=== PATIENT | female | born 1990 | race Caucasian/White ===

== ENCOUNTER 2018-01-23 19:38 | Emergency (ER) | payer OTHER ==
[2018-01-23 20:29] VITALS: BP 116/83
--- NOTE | 2018-01-23 21:44 | UC ---
Abigail West Rebecca, scribed for Ryan Novak MD on 01/23/18 at 2040 . Throat Pain/Nasal Julio Cesar HPI - HPI Summary HPI Summary: Pt is a 27 y/o F who presents to [facility] c/o sore throat. Sx have been present for about 2 months, worsening significantly about 2 weeks ago. Pain is on the left side of the throat, currently moderate, ranked 4/10. Has been treating with Tylenol, Advil and gargling salt water. Sx aggravated by swallowing, alleviated by Advil, unchanged by Tylenol. Denies fever, chills, ear pain, rhinorrhea, sinus pressure, lymph node swelling. Has been on a soft food diet secondary to the pain. [place] tooth removal on 01/07 after which her pain worsened. All 4 teeth were removed and she finished Amoxicillin from the surgery on 01/14. Reports having a throat culture done about 1 weeka go prior to moving to [place] which she presumes was negative. - History of Current Complaint Chief Complaint: UCGeneralIllness Stated Complaint: SORE THROAT Time Seen by Provider: 01/23/18 20:32 Hx Obtained From: Patient Hx Last Menstrual Period: [id number] Onset/Duration: Lasting Weeks - 2 months, Still Present, Worse Since - 2 weeks Severity: Moderate Pain Intensity: 4 Pain Scale Used: 0-10 Numeric Cough: None Associated Signs & Symptoms: Positive: Negative. Negative: Fever - Allergies/Home Medications Allergies/Adverse Reactions: Allergies Allergy/AdvReac Type Severity Reaction Status Date / Time pertussis vaccine,fluid Allergy Hives Verified 01/23/18 20:30 PMH/Surg Hx/FS Hx/Imm Hx - Additional Past Medical History Additional PMH: NEGATIVE PMHx: CA, HTN, DM Respiratory History: Asthma - Exercise-induced - Surgical History Surgical History: Yes Surgery Procedure, Year, and Place: appy 09, wisdom teeth 18 - Family History Known Family History: Positive: Hypertension - Paternal side - Social History Alcohol Use: Weekly Substance Use Type: None Smoking Status (MU): Never Smoked Tobacco Review of Systems Constitutional: Negative Skin: Negative Eyes: Negative ENT: Sore Throat Respiratory: Negative Cardiovascular: Negative Gastrointestinal: Negative Genitourinary: Negative Motor: Negative Neurovascular: Negative Musculoskeletal: Negative Neurological: Negative Psychological: Negative All Other Systems Reviewed And Are Negative: Yes - Comments Additional Review of Systems Comments: NEGATIVE: Fever, chills, ear pain, rhinorrhea, sinus pressure, lymph node swelling Physical Exam - Summary Physical Exam Summary: General: well-appearing, no pain distress Skin: warm, color reflects adequate perfusion, dry Head: normal Eyes: EOMI, ROSA ENT: the posterior pharynx appears benign with no masses Neck: supple, mild tenderness to the left upper neck with no palpated masses Respiratory: CTA, breath sounds present Cardiovascular: RRR Abdomen: soft, nontender Bowel: present Musculoskeletal: normal, strength/ROM intact Neurological: sensory/motor intact, A&O x3 Psychological: affect/mood appropriate Triage Information Reviewed: Yes Vital Signs: Initial Vital Signs Temp 98.7 F 01/23/18 20:23 Pulse 74 01/23/18 20:23 Resp 16 01/23/18 20:23 BP 116/83 01/23/18 20:23 Pulse Ox 100 01/23/18 20:23 Vital Signs Reviewed: Yes Re-Evaluation - Re-Evaluation First Eval Re-Evaluation Time: 21:36 Comment: Discussed results. Throat Pain/Nasal Course/Dx - Course Course Of Treatment: DISCUSSED IMAGING (CT SOFT TISSUE NECK) BUT, CT NOT AVAILABLE HERE IN CLINIC NOW. SUSAN HAS AN ENT APPOINTMENT SCHEDULED FOR . GET RECHECKED SOONER IF WORSE. - Differential Dx/Diagnosis Provider Diagnoses: SORE THROAT Discharge - Sign-Out/Discharge Documenting (check all that apply): Discharge/Admit/Transfer - Discharge - Discharge Plan Condition: Stable Disposition: HOME Prescriptions: Amoxicillin/Clavulanate TAB* [Augmentin TAB 875*] 875 mg PO BID #19 tab Patient Education Materials: Pharyngitis (ED) Referrals: [facility] - Kirill BURKS [Medical Doctor] - [facility] [Provider Group] Additional Instructions: FOLLOW UP WITH YOUR PRIMARY CARE DOCTOR AND ENT SCHEDULED. GET RECHECKED FOR ANY WORSENING OF YOUR CONDITION OR QUESTIONS OR CONCERNS. - Billing Disposition and Condition Condition: STABLE Disposition: HOME The documentation as recorded by the Abigail powell Rebecca accurately reflects the service I personally performed and the decisions made by me, Ryan Novak MD.
[2018-01-23] MEDS ORDERED: Amoxicillin/Clavulanate TAB* 875 MG PO ONE ×2 (21:45→21:52)
== END 2018-01-23 21:55 | disposition home or self-care (01) ==
LOC: UCEAST 19:38
DX: J02.9 Acute pharyngitis, unspecified (principal); Z88.7 Allergy status to serum and vaccine; J45.990 Exercise induced bronchospasm
CPT/HCPCS: 87651; 99202; A9270-GY; G0463

== ENCOUNTER 2018-02-17 07:43 | Emergency (ER) | payer OTHER ==
[2018-02-17 07:57] VITALS: BP 124/84
--- NOTE | 2018-02-17 08:23 | UC ---
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 - History of Current Complaint Chief Complaint: UCBiteInjury Stated Complaint: CAT BITE Time Seen by Provider: 02/17/18 08:17 Hx Obtained From: Patient Hx Last Menstrual Period: 02/15/18 Severity Currently: Moderate Severity Initially: Moderate Pain Intensity: 3 Onset/Duration: Sudden Onset Type of Bite: Animal Has Animal Been Immunized?: Yes Character: Puncture Associated Signs And Symptoms: Positive: Erythema, Swelling - Allergies/Home Medications Allergies/Adverse Reactions: Allergies Allergy/AdvReac Type Severity Reaction Status Date / Time pertussis vaccine,fluid Allergy Hives Verified 02/17/18 07:50 PMH/Surg Hx/FS Hx/Imm Hx Previously Healthy: Yes - Surgical History Surgical History: Yes Surgery Procedure, Year, and Place: appendectomy 2008, wisdom teeth 2018 - Family History Known Family History: Positive: Hypertension - Paternal side - Social History Alcohol Use: None Substance Use Type: None Smoking Status (MU): Never Smoked Tobacco - Immunization History Most Recent Tetanus Shot: 2009 Review of Systems Constitutional: Negative Skin: Other - 2 puncture sites Eyes: Negative ENT: Negative Respiratory: Negative Cardiovascular: Negative Gastrointestinal: Negative Genitourinary: Negative Motor: Negative Neurovascular: Negative Musculoskeletal: Negative Neurological: Negative Psychological: Negative Is Patient Immunocompromised?: No All Other Systems Reviewed And Are Negative: Yes Physical Exam Triage Information Reviewed: Yes Appearance: Well-Appearing, Well-Nourished, Pain Distress Vital Signs: Initial Vital Signs Temp 98 F 02/17/18 07:51 Pulse 67 02/17/18 07:51 Resp 16 02/17/18 07:51 BP 124/84 02/17/18 07:51 Pulse Ox 100 02/17/18 07:51 Vital Signs Reviewed: Yes Eye Exam: Normal ENT Exam: Normal Dental Exam: Normal Neck exam: Normal Neck: Positive: Supple, Nontender, No Lymphadenopathy Respiratory Exam: Normal Respiratory: Positive: Chest non-tender, Lungs clear, Normal breath sounds Cardiovascular Exam: Normal Cardiovascular: Positive: RRR, No Murmur, Pulses Normal Abdominal Exam: Normal Abdomen Description: Positive: Nontender, No Organomegaly, Soft Bowel Sounds: Positive: Present Musculoskeletal Exam: Normal Musculoskeletal: Positive: Strength Intact, ROM Intact, No Edema Neurological Exam: Normal Neurological: Positive: Alert, Muscle Tone Normal Skin: Positive: significant lesion(s) - 2 puncture wounds, bruising and swelling as noted. ROM intact Bite Injury Course/Dx - Course Course Of Treatment: hx obtained, exam performed ,meds reviewed, UTD on vaccines , started on ABX - Differential Dx/Diagnosis Differential Diagnosis/HQI/PQRI: Puncture, Superficial Infection Provider Diagnoses: cat bite. 2 puncture wounds to right hand Discharge - Sign-Out/Discharge Documenting (check all that apply): Discharge/Admit/Transfer - Discharge Plan Condition: Stable Disposition: HOME Prescriptions: Amoxicillin/Clavulanate TAB* [Augmentin TAB 875*] 875 mg PO BID #14 tab Patient Education Materials: Animal Bite (ED) [facility] - Additional Instructions: 1. take the medication as prescribed. 2. recommend a probiotic while taking the antibiotic 3. warm soakes of the hand 2-3 times a day for the next few days 4. tylenol or ibuprofen for pain., 5. if you notice any increaseing signs of infection while on antibiotic, repor to ER for further treatment - Billing Disposition and Condition Condition: STABLE Disposition: Home
== END 2018-02-17 08:30 | disposition home or self-care (01) ==
LOC: UCEAST 07:43
DX: S61.431A Puncture wound without foreign body of right hand, initial encounter (principal); W55.01XA Bitten by cat, initial encounter; Y93.K9 Activity, other involving animal care; Y92.89 Other specified places as the place of occurrence of the external cause; Y99.8 Other external cause status; Z88.7 Allergy status to serum and vaccine; Z82.49 Family history of ischemic heart disease and other diseases of the circulatory system
CPT/HCPCS: 99212; G0463